=== PATIENT | male | born 1960 | race Caucasian/White ===

== ENCOUNTER 2017-12-28 12:08 | Emergency (ER) | payer SELFPAY ==
[~2017-12-28] VITALS: Ht 175.3 cm; Wt 79.4 kg
[~2017-12-28 12:08] MED LIST: AZITHROMYCIN250 MG PO; NKM; PRILOSEC20 MG PO
[2017-12-28] MEDS ORDERED: Lidocaine 4% Cream 15g TOPIC ONE (12:45)
[2017-12-28] MEDS ORDERED: Ketorolac 60mg Inj IM ONE (12:45)
--- NOTE | 2017-12-28 13:07 | Diagnostic Imaging Report ---
Indication: Knee pain Technique: XRAY Knee Compl 4v+ L Comparison: None Findings: There is no evidence of acute fracture or dislocation. There is mild degenerative change with medial compartment joint space narrowing. There is probable small suprapatellar joint effusion. No radiopaque foreign body seen. Impression: No definite evidence of acute fracture or dislocation. Mild degenerative change with medial compartment joint space narrowing.
[2017-12-28 13:13] VITALS: BP 117/74
--- NOTE | 2017-12-28 14:41 | Emergency Room Report ---
History of Present Illness General Chief Complaint: Lower Extremity Injury Source: Patient Present Illness HPI Patient is a 57-year-old male who presents after increased pain to his left knee. Patient reports having fallen from a ladder. He states he landed onto his heel. The patient reports having his legs straight at the time of falling. He reported hyperextending his left knee. The pain was described as severe nature. He denies any definite numbness to his toes. Patient states that he had been previously treated with Suboxone and does not want any narcotic pain medications.Patient denies any other locations of injury. He denies any back pain or heel pain. Allergies: Coded Allergies: No Known Allergies (Verified Allergy, Unknown, 10/03/08) Patient History Past Medical History: see triage record Reviewed Nursing Documentation: PMH: Agreed; PSxH: Agreed Nursing Documentation-PMH Past Medical History: No Stated History Review of Systems All Other Systems: negative except mentioned in HPI Physical Exam Vital Signs Date Time Temp Pulse Resp B/P (MAP) Pulse Ox O2 Delivery O2 Flow Rate FiO2 12/28/17 12:12 98.0 80 20 117/74 95 Room Air 98.1 General Appearance: well appearing, no apparent distress, alert, GCS 15, non- toxic Head: normocephalic, atraumatic ENT: hearing grossly normal, normal voice Neck: full range of motion, supple Respiratory: no respiratory distress, speaking full sentences Musculoskeletal: no calf tenderness, decreased range of mation, swelling - behind left knee. Neurologic: normal inspection, alert, oriented x3, responsive, normal gait Psychiatric: mood/affect normal Skin: no rash Medical Decision Making Diagnostic Impression: Primary Impression: Sprain of knee, cruciate ligament Additional Impression: Traumatic hematoma of left knee ER Course Patient presented for knee pain. Differential diagnosis included was not limited to popliteal aneurysm, arthritis, posterior dislocation, ligamentous injury, septic joint among others.Because of complexity of patient's case laboratory testing and imaging studies were ordered. The x-ray imaging of the left knee the read by radiology showed small suprapatellar joint effusion. The patient was given anti-inflammatory medications as well The patient was pending vascular studies. The duplex ultrasound of the left knee was ordered to evaluate for arterial injury. The patient states he did not want this imaging study performed. Patient refused further management including knee immobilizer. Patient was advised risk benefits and alternatives of leaving AGAINST MEDICAL ADVICE including worsening of condition and loss of limb and loss of current lifestyle and he indicated understanding and wished to leave. The patient is advised he can return at any time. Last Vital Signs Date Time Temp Pulse Resp B/P (MAP) Pulse Ox O2 Delivery O2 Flow Rate FiO2 12/28/17 13:13 98.0 20 117/74 95 Room Air 208.4 12/28/17 12:12 80 Status: unchanged Disposition: AGAINST MEDICAL ADVICE Condition: Improved Referrals: NOT CHOSEN IPA/,REFERRING (PCP) Neftali Henriquez December 28, 2017 14:41
== END 2017-12-28 13:13 | disposition other institution (70) ==
LOC: EMR 12:22
DX: S83.502A Sprain of unspecified cruciate ligament of left knee, initial encounter (principal); W11.XXXA Fall on and from ladder, initial encounter; Y92.9 Unspecified place or not applicable
CPT/HCPCS: 96372; 99283